=== PATIENT | male | born 1965 | race African-American/Black ===

== ENCOUNTER 2022-08-06 07:27 | Day surgery (SDC) | payer OTHER ==
[2022-08-03 16:42] VITALS: BMI 43.3
[2022-08-06] MEDS ORDERED: BUPIVACAINE HCL/PF 0.25% (2.5MG/ML) 10 ML VIAL ONE (09:18)
[2022-08-06] MEDS ORDERED: PROPOFOL 40 ML ONE (10:45)
[2022-08-06] MEDS ORDERED: MIDAZOLAM HCL 2 MG/2 ML SINGLE DOSE VIAL ONE (10:45)
[2022-08-06] MEDS ORDERED: SEVOFLURANE 250 ML BTL ONE (10:47)
[2022-08-06] MEDS ORDERED: LIDOCAINE HCL/PF 2% SDV 5ML VIAL ONE (11:02)
[2022-08-06] MEDS ORDERED: ceFAZolin SODIUM 1 GM VIAL ONE (11:13)
[2022-08-06] MEDS ORDERED: DEXAMETHASONE SOD PHOSPHATE 4 MG/1 ML VIAL ONE (11:16)
[2022-08-06] MEDS ORDERED: ONDANSETRON 4 MG/2 ML VIAL ONE ×2 (11:16→11:54)
[2022-08-06] MEDS ORDERED: oxyCODONE HCL 5 MG TABLET PO PRN (12:08)
[2022-08-06] MEDS ORDERED: ONDANSETRON 4 MG/2 ML VIAL IVPUSH PRN (12:08)
[2022-08-06] MEDS ORDERED: FENTANYL CITRATE/PF 50 MCG/ML VIAL ONE ×3 (12:12→12:29)
[2022-08-06] MEDS ORDERED: LACTATED RINGERS SOLUTION 1,000 ML IV SCH (12:15)
[2022-08-06 13:11] VITALS: TEMP 97.8
[2022-08-06] MEDS ORDERED: ACETAMINOPHEN 500 MG TABLET (FP) ONE (13:13)
[2022-08-06 13:20] VITALS: RESP 16
[2022-08-06 14:29] VITALS: BP 115/67; PULSE 57
== END 2022-08-06 14:10 | disposition home or self-care (01) ==
LOC: FASU 07:27
PROVIDERS: ATTEND Orthopaedic Surgery Sports Medicine
PROC: 0SBC4ZZ Excision of Right Knee Joint, Percutaneous Endoscopic Approach (ICD-10-PCS; 2022-08-06)
PROC: 0SBC4ZZ Excision of Right Knee Joint, Percutaneous Endoscopic Approach (ICD-10-PCS; principal; 2022-08-06 11:17)
DX: S83.241A Other tear of medial meniscus, current injury, right knee, initial encounter (principal); S83.281A Other tear of lateral meniscus, current injury, right knee, initial encounter; X58.XXXA Exposure to other specified factors, initial encounter; Y93.9 Activity, unspecified; Y92.9 Unspecified place or not applicable
CPT/HCPCS: 94760